=== PATIENT | female | born 1975 | race Caucasian/White ===

== ENCOUNTER 2023-10-12 12:16 | Emergency (ER) | payer SELFPAY ==
[2023-10-12 12:23] VITALS: BMI 30.7
[2023-10-12 14:58] VITALS: BP 161/89; PULSE 90; RESP 19; TEMP 97.9
== END 2023-10-12 16:05 | disposition home or self-care (01) ==
LOC: JER 12:16
DX: R04.0 Epistaxis (principal); R04.2 Hemoptysis; I10 Essential (primary) hypertension; R05.9 Cough, unspecified
CPT/HCPCS: 71046-TC-FY; 99283-25